=== PATIENT | female | born 1960 | race American Indian/Alaskan Native ===

== ENCOUNTER 2019-07-07 19:39 | Emergency (ER) | payer MEDICARE ==
--- NOTE | 2019-07-07 20:01 | Event Note ---
ED Screening Note ED Screening Note: pt presents with elevated blood pressure states she has right arm pain, states she "thinks she pulled a muscle" states she has a doctors appointment tomorrow with a new PCP states she takes lisinopril 2.5 mg once daily states she has not taken her medication in 10 months This initial assessment/diagnostic orders/clinical plan/treatment(s) is/are subject to change based on patients health status, clinical progression and re- assessment by fellow clinical providers in the ED. Further treatment and workup at subsequent clinical providers discretion. Patient/guardian urged not to elope from the ED as their condition may be serious if not clinically assessed and managed. Initial orders include: labs, UA, EKG
[2019-07-07 20:30] LABS: Basophils # (Auto) 0.1 K/mm3 (0.0-0.1); Basophils % (Auto) 0.8 % (0.0-1.8); Eosinophils # (Auto) 0.1 K/mm3 (0.0-0.4); Eosinophils % (Auto) 1.1 % (0.0-4.3); Hematocrit 44.3 % (30.3-42.9); Hemoglobin 15.1 gm/dl (10.1-14.3); Lymphocytes # (Auto) 3.6 K/mm3 (1.2-5.4); Lymphocytes % (Auto) 34.5 % (13.4-35.0); Mean Corpuscular HGB Conc 34 % (30-34); Mean Corpuscular Volume 88 fl (79-97); Monocytes # (Auto) 0.6 K/mm3 (0.0-0.8); Monocytes % (Auto) 6.1 % (0.0-7.3); Platelet Count 158 K/mm3 (140-440); Red Blood Count 5.06 M/mm3 (3.65-5.03); Red Cell Distribution Width 12.9 % (13.2-15.2)
[2019-07-07 21:19] LABS: BUN/Creatinine Ratio 18; Blood Urea Nitrogen 14 mg/dL (7-17); Calcium 9.4 mg/dL (8.4-10.2); Hemolysis Index 5
[2019-07-07 21:57] LABS: Bilirubin,Urine NEG (Negative); Blood,Urine SM (Negative); Color,Urine Yellow (Yellow); Mucus,Urine FEW /HPF; Protein,Urine <15 mg/dL mg/dL (Negative); Urobilinogen,Urine < 2.0 mg/dL (<2.0)
--- NOTE | 2019-07-07 22:17 | Emergency Department Report ---
ED General Adult HPI - General Chief complaint: High BP Stated complaint: BP AND UPPER RT ARM HAND Time Seen by Provider: 07/07/19 19:58 Source: patient Mode of arrival: Ambulatory Limitations: No Limitations - History of Present Illness Initial comments: 58-year-old female with history of hypertension, diabetes presents to ED for elevated blood pressure. Patient states she had an appointment at the dentist today to get to school, however they would not do the procedure because patient's blood pressure was too high. Patient was advised to come to the emergency room. Patient states she has been off of her blood pressure medication for several months due to lack of insurance. Patient states after leaving the dentist she took an Aleve, states tooth pain has improved, which she thinks was concerning to her elevated blood pressure also. Patient has an appointment in the morning at 8:45 AM with a new PCP. Patient has no complaints at this time. -: unknown Associated Symptoms: denies: chest pain, headaches, nausea/vomiting, shortness of breath Treatments Prior to Arrival: NSAID - Related Data Allergies Allergy/AdvReac Type Severity Reaction Status Date / Time codeine Allergy Unknown Verified 07/07/19 19:46 ED Review of Systems ROS: Stated complaint: BP AND UPPER RT ARM HAND Other details as noted in HPI Comment: All other systems reviewed and negative Respiratory: denies: shortness of breath Cardiovascular: denies: chest pain Gastrointestinal: denies: nausea, vomiting Neurological: denies: headache ED Past Medical Hx - Past Medical History Previous Medical History?: Yes Hx Hypertension: Yes Hx Diabetes: Yes Additional medical history: High Cholesterol - Surgical History Past Surgical History?: Yes Hx Appendectomy: Yes Additional Surgical History: Hysterectomy/ hernia repair/ Bilateral knees/ Lipoma/ Tubal Ligation - Social History Smoking Status: Never Smoker Substance Use Type: None ED Physical Exam - General Limitations: No Limitations General appearance: alert, in no apparent distress - Head Head exam: Present: atraumatic, normocephalic - Eye Eye exam: Present: normal appearance, PERRL, EOMI - ENT ENT exam: Present: mucous membranes moist - Neck Neck exam: Present: normal inspection - Respiratory Respiratory exam: Present: normal lung sounds bilaterally. Absent: respiratory distress - Cardiovascular Cardiovascular Exam: Present: regular rate, normal rhythm - GI/Abdominal GI/Abdominal exam: Present: soft. Absent: distended, tenderness - Extremities Exam Extremities exam: Present: normal inspection, full ROM - Neurological Exam Neurological exam: Present: alert, oriented X3, CN II-XII intact. Absent: motor sensory deficit - Psychiatric Psychiatric exam: Present: normal affect, normal mood - Skin Skin exam: Present: warm, dry, intact, normal color ED Course Vital Signs 07/07/19 07/07/19 07/07/19 19:52 19:58 21:02 Temperature 98.8 F 98.8 F Pulse Rate 95 H 91 H Respiratory 18 18 16 Rate Blood Pressure 184/116 184/116 Blood Pressure [Left] O2 Sat by Pulse 97 98 98 Oximetry 07/07/19 07/07/19 07/07/19 21:15 21:31 22:00 Temperature Pulse Rate Respiratory Rate Blood Pressure 156/125 168/107 164/99 Blood Pressure [Left] O2 Sat by Pulse 98 99 99 Oximetry 07/07/19 07/07/19 07/07/19 22:30 22:45 22:55 Temperature Pulse Rate 71 Respiratory 16 Rate Blood Pressure 185/104 197/109 Blood Pressure 197/109 [Left] O2 Sat by Pulse 99 99 100 Oximetry ED Medical Decision Making - Lab Data Result diagrams: 07/07/19 20:17 07/07/19 20:17 - EKG Data -: EKG Interpreted by Me EKG shows normal: sinus rhythm, axis, intervals, QRS complexes - EKG Data Interpretation: nonspecific ST-T wave jaja, LVH - Medical Decision Making 49-year-old female with asymptomatic hypertension. Patient reports she has been off her BP meds 10 months. Discovered that she was hypertensive while at the dentist's office today. Exam is normal. Patient denies any symptoms, including headache, dizziness, chest pain, shortness of breath, nausea or vomiting. Patient reports that she actually has an appointment in the morning with a new PCP. BP will be addressed at her doctor's visit, will hold off giving her any new medication at this time. Will discharge home. Return precautions given. - Differential Diagnosis uncontrolled HTN Critical care attestation.: If time is entered above; I have spent that time in minutes in the direct care of this critically ill patient, excluding procedure time. ED Disposition Clinical Impression: Hypertension, Hyperglycemia Disposition: - TO HOME OR SELFCARE Is pt being admited?: No Condition: Stable Instructions: Hypertension (ED) Referrals: PRIMARY CARE, [Referring] - 07/08/19 Time of Disposition: 22:14
[2019-07-07 23:02] VITALS: BP 197/109
== END 2019-07-07 22:55 | disposition home or self-care (01) ==
LOC: ED 19:39
DX: I10 Essential (primary) hypertension (principal); E11.65 Type 2 diabetes mellitus with hyperglycemia; E78.00 Pure hypercholesterolemia, unspecified; Z90.49 Acquired absence of other specified parts of digestive tract; Z90.710 Acquired absence of both cervix and uterus
CPT/HCPCS: 36415; 80048; 81001; 85025; 93005; 93010